=== PATIENT | female | born 1965 | race African-American/Black ===

== ENCOUNTER → 2022-07-31 08:08 | Outpatient (BNVA) | payer MEDICARE, MEDICAID, SELFPAY | PROVIDERS: Visit Provider Student in an Organized Health Care Education/Training Program | DX: M77.8 Other enthesopathies, not elsewhere classified (principal); M06.9 Rheumatoid arthritis, unspecified; M32.9 Systemic lupus erythematosus, unspecified; Z11.59 Encounter for screening for other viral diseases | CPT/HCPCS: 36415; 80053; 81001; 82784; 84156; 84165; 85025; 85652; 86038; 86039; 86140; 86160; 86200; 86225; 86235; 86255; 86334; 86431; 86481; 86704; 86706; 86709; 86803; 87340; 99202 ==

== ENCOUNTER 2022-07-31 09:46 | Outpatient (REF) | payer MEDICARE, MEDICAID, SELFPAY ==
[2022-07-31 10:54] LABS: MANUAL DIFF FLAG NO
[2022-07-31 11:07] LABS: Basophils Percent Auto 0.7 % (0-2); Eosinophils Absolute Auto 0.1 X10*3/uL (0.0-0.4); Eosinophils Percent Auto 2.4 % (0-4); Hematocrit 38.9 % (37.0-47.0); Hemoglobin 12.3 g/dl (12.0-16.0); Imm Gran Abs Auto 0.01 X10*3/uL (0.00-0.03); Imm Gran Pct Auto 0.2 % (0.0-0.4); Lymphocytes Absolute Auto 1.5 X10*3/uL (1.2-4.9); Lymphocytes Percent Auto 34.8 % (20-40); Mean Corpuscular HGB Conc 31.6 g/dl (31.0-35.0); Mean Corpuscular Hemoglobin 23.9 pg (27.0-33.0); Mean Corpuscular Volume 75.5 fL (80.0-98.0); Monocytes Absolute Auto 0.2 X10*3/uL (0.1-1.2); Monocytes Percent Auto 5.7 % (2-11); Neutrophils Absolute Auto 2.4 x10*3/uL (2.0-8.3); Neutrophils Percent Auto 56.2 % (45-73); Platelet Count 268 X10*3/uL (160-400); Red Blood Count 5.15 X10*6/uL (4.20-5.50); Red Cell Distribution Width 15.6 % (11.0-16.0); White Blood Count 4.2 X10*3/uL (4.8-10.8)
[2022-07-31 11:13] LABS: Appearance Urine Cloudy; Color Urine Yellow; Glucose Urine UA Negative (Negative); Leukocyte Esterase Urine Negative (Negative); Nitrite Urine Negative (Negative); Specific Gravity - Urine 1.025 (1.005-1.025); Urine Blood Negative (Negative); Urine Ketones Negative (Negative); Urine Protein Trace mg/dL (Neg-Trace)
[2022-07-31 11:15] LABS: Bacteria Urine 2+ (None Seen); Hyaline Casts Urine 0-2 /LPF (0-2); RBC Urine 0-2 /HPF (0-2)
[2022-07-31 11:34] LABS: Alanine Aminotransferase 13 U/L (0-31); Alkaline Phosphatase 64 U/L (39-117); Anion Gap 15 (12-20); Aspartate Amino Transferase 14 U/L (5-31); Bilirubin Total 0.5 mg/dL (0.0-1.0); Blood Urea Nitrogen 12 mg/dL (9-16); C Reactive Protein 3.39 mg/dL (< or = 0.50); Calcium 9.6 mg/dL (8.4-10.2); Carbon Dioxide 33 mmol/L (22-29); Chloride 96 mmol/L (96-108); Estimated Glomerular Filt Rate > 60; Glucose Random 83 mg/dL (60-115); Potassium 3.2 mmol/L (3.3-5.1); Rheumatoid Factor < 13.0 IU/mL (<15.0); Sodium 141 mmol/L (135-145); Total Protein 7.5 g/dL (6.5-8.0)
[2022-07-31 11:41] LABS: Erythrocyte Sedimentation Rate 66 MM/HR (0-20)
[2022-07-31 12:05] LABS: Protein/Creatinine Ratio, Ur 0.09 (<0.2); Total Protein Urine Random 16 mg/dL (<12)
[2022-07-31 12:09] LABS: HBS Num1 6.65 mIU/mL (0-7.99); HBc Num1 0.09 S/CO (0.00-0.79); HBsAGNum1 0.28 S/CO (0.00-0.99); Hepatitis A Antibody IgM 0.16 Index (0-0.79); Hepatitis B Core Antibody Nonreactive (Nonreactive); Hepatitis B Surface Antigen Negative (Negative); ~HepC Num1 0.12 S/CO (0.00-0.79); ~Hepatitis A Antibody IgM Nonreactive (Nonreactive); ~Hepatitis B Surface Antibody NONREACTIVE (Nonreactive); ~Hepatitis C Antibody Nonreactive (Nonreactive)
[2022-08-02 19:04] LABS: TS Negative Control Passed; TS Panel A 0; TS Panel B 1; TS Positive Control Passed; TSpotTB Negative (Negative)
[2022-08-03 09:39] LABS: Complement C3 157 mg/dL (83-193)
[2022-08-03 14:09] LABS: Prot Elec - Albumin 3.8 g/dL (3.8-4.8); Prot Elec - Alpha1 0.4 g/dL (0.2-0.3); Prot Elec - Alpha2 0.8 g/dL (0.5-0.9); Prot Elec - Beta 1 0.5 g/dL (0.4-0.6); Prot Elec - Beta 2 0.6 g/dL (0.2-0.5); Prot Elec - Gamma 1.6 g/dL (0.8-1.7); Prot Elec - Total Protein 7.6 g/dL (6.1-8.1)
[2022-08-03 17:03] LABS: Cyclic Citrullinated Peptide <16 UNITS
[2022-08-03 21:04] LABS: Anti DNA DS Antibody <1 IU/mL; Antibody to SS-A Antigen <1.0 NEG AI (<1.0 NEG); Antibody to SS-B Antigen <1.0 NEG AI (<1.0 NEG); SM/Ribonucleoprotein Ab <1.0 NEG AI (<1.0 NEG); Smith Protein <1.0 NEG AI (<1.0 NEG)
[2022-08-04 12:08] LABS: Anti Nuclear Antibody Pattern Nuclear, Homogeneous; Anti Nuclear Antibody Screen POSITIVE (NEGATIVE); Anti Nuclear Antibody Titer 1:40 titer
[2022-08-04 16:34] LABS: DNAds, Crithidia Antibody Negative (Negative)
[2022-08-05 15:38] LABS: IgA 518 mg/dL (47-310); IgG 1697 mg/dL (600-1640); IgM 110 mg/dL (50-300)
== END 2022-07-31 09:47 | disposition home or self-care (01) ==
LOC: HO.10HDL 09:46
PROVIDERS: Visit Provider Student in an Organized Health Care Education/Training Program
DX: Z13.89 Encounter for screening for other disorder (principal)
CPT/HCPCS: 36415; 80053; 81001; 82784; 84156; 84165; 85025; 85652; 86038; 86039; 86140; 86160; 86200; 86225; 86235; 86255; 86334; 86431; 86481; 86704; 86706; 86709; 86803; 87340

== ENCOUNTER 2022-08-17 09:06 | Outpatient (REF) | payer MEDICARE, MEDICAID, SELFPAY ==
--- NOTE | ~2022-08-17 | MR_ITS ---
EXAMINATION: MRI OF THE RIGHT HAND WITHOUT AND WITH CONTRAST CLINICAL INFORMATION: Rheumatoid arthritis. COMPARISON: None. TECHNIQUE: MRI of the right hand is performed without and with contrast. Contrast dose 10 mL of Gadavist given intravenously. Patient had to be repositioned during the examination resulting in a precontrast and postcontrast mismatch of the images. FINDINGS: SUBCUTANEOUS SOFT TISSUES: Normal. MUSCLES/TENDONS: Third Digit: There is a lobulated cystic-appearing mass/collection abutting the flexor tendon sheath at the level of the 3rd metacarpophalangeal joint. There is minimal thin-walled peripheral enhancement. This is compatible with a ganglion cyst or synovial recess related to the tendon sheath. This measures 2 cm craniocaudal, 2 cm transverse and up to 0.6 cm AP. The tendons appear otherwise intact. Trace fluid in the flexor pollicis longus tendon sheath compatible with minimal tenosynovitis. Remaining muscles and tendons unremarkable. BONE/JOINTS: No joint effusion or synovitis. No erosions. Marrow in cartilage appears intact. Small cysts present within the capitate and trapezoid likely represent incidental carpal cysts. Bone and joints otherwise unremarkable. LIGAMENTS AND CAPSULAR STRUCTURES: Unremarkable. The triangular fibrocartilage complex appears intact, although evaluation is limited given the large [id number] utilized to evaluate the hand. MR/MR hand RT wo/w con IMPRESSION: 1. Ganglion cyst versus synovial recess abutting the flexor tendon sheath of the 3rd digit. 2. Minimal tenosynovitis of the flexor pollicis longus. 3. No joint effusion or synovitis involving the joints of the wrist and hand.
== END 2022-08-17 09:07 | disposition home or self-care (01) ==
LOC: HO.MRI 09:06
PROVIDERS: Visit Provider Student in an Organized Health Care Education/Training Program
DX: M06.9 Rheumatoid arthritis, unspecified (principal)
CPT/HCPCS: 73220; A9585

== ENCOUNTER → 2022-09-10 14:47 | Outpatient (BNVA) | payer MEDICARE, MEDICAID, SELFPAY | PROVIDERS: Visit Provider Student in an Organized Health Care Education/Training Program | DX: M77.8 Other enthesopathies, not elsewhere classified (principal) | CPT/HCPCS: 99212 ==

== ENCOUNTER 2022-10-13 09:36 | Outpatient (REF) | payer MEDICARE, MEDICAID, SELFPAY | END 2022-10-13 09:37 | disposition home or self-care (01) | LOC: HO.HOSX 09:36 | PROVIDERS: Visit Provider Orthopaedic Surgery | DX: Z13.89 Encounter for screening for other disorder (principal) ==

== ENCOUNTER 2022-12-23 08:29 | Outpatient (REF) | payer MEDICARE, MEDICAID, SELFPAY | END 2022-12-23 08:30 | disposition home or self-care (01) | LOC: HO.HOSX 08:29 | PROVIDERS: Visit Provider Orthopaedic Surgery | DX: Z13.89 Encounter for screening for other disorder (principal) ==